=== PATIENT | female | born 2000 | race Caucasian/White ===

== ENCOUNTER → 2022-04-10 | Day surgery (SDC) | payer BC ==
[~2022-04-10] MED LIST: BUPIVACAINE 0.25% 30ML SDV ONE; CRANBERRY200 MG PO; FENTANYL CITRATE/PF 100MCG/2 ML INJ ONE; MIDAZOLAM HCL 2 MG/2 ML VIAL ONE; Morphine 10mg syringe 10 MG/ML INJ ONE; ONDANSETRON HCL INJ 2MG/ML 2ML 2 MG/ML VIAL ONE; OXYMETAZOLINE HCL 0.05% NAS 1 SPRAY BTL ONE; PROMETHAZINE HCL (IM) 25 MG/ML VIAL IM ONE; VITAMIN C1000 MG PO
[2022-04-10 08:45] VITALS: BP 127/79
== END | disposition home or self-care (01) ==
LOC: OR 05:32
PROVIDERS: ATTEND Otolaryngology
DX: J35.03 Chronic tonsillitis and adenoiditis (principal); G43.909 Migraine, unspecified, not intractable, without status migrainosus; F41.9 Anxiety disorder, unspecified
CPT/HCPCS: 42821; 81025; 88304; J2405; J2550; J2250; J2270; J3010